=== PATIENT | female | born 1965 | race Caucasian/White ===

== ENCOUNTER 2017-03-12 17:45 | Emergency (ER) | payer OTHER ==
[~2017-03-12] VITALS: Ht 160 cm; Wt 57.1 kg
[2017-03-12 18:40] VITALS: BP 125/93; Ht 160 cm; Wt 57.1 kg
== END 2017-03-12 20:27 | disposition left against medical advice (07) ==
LOC: ED 17:45
DX: Z53.21 Procedure and treatment not carried out due to patient leaving prior to being seen by health care provider (principal)

== ENCOUNTER 2018-09-21 03:20 | Emergency (ER) | payer OTHER ==
[~2018-09-21] VITALS: Ht 162.6 cm; Wt 58.5 kg
[2018-09-21 06:03] VITALS: BP 101/67
== END 2018-09-21 06:03 | disposition home or self-care (01) ==
LOC: ED 03:20
DX: R10.33 Periumbilical pain (principal); R11.2 Nausea with vomiting, unspecified; R19.7 Diarrhea, unspecified; E78.00 Pure hypercholesterolemia, unspecified
CPT/HCPCS: Q0162